=== PATIENT | male | born 1975 | race Caucasian/White ===

== ENCOUNTER 2021-09-10 06:27 | Day surgery (SDC) | payer OTHER ==
[~2021-09-10 06:27] MED LIST: Lactated Ringers 1,000 ML IV SCH; ceFAZolin 2 GM in Premix Bag 1 BAG IV SCH
[2021-09-10] MEDS ORDERED: fentaNYL 100 MCG/2 ML SDV IVPUSH PRN (07:02)
[2021-09-10] MEDS ORDERED: Morphine 2 MG/ML SYRINGE IVPUSH PRN (07:02)
[2021-09-10] MEDS ORDERED: Metoclopramide 10 MG/2 ML SDV IVPUSH PRN (07:02)
[2021-09-10] MEDS ORDERED: HYDROmorphone 1 MG/ML Syringe IVPUSH PRN (07:02)
[2021-09-10] MEDS ORDERED: Ondansetron 4 MG/2 ML SDV IVPUSH PRN ×2 (07:02→10:35)
[2021-09-10] MEDS ORDERED: Albuterol 0.083% 2.5 MG/3 ML Neb Soln NEB PRN (07:02)
[2021-09-10] MEDS ORDERED: Naloxone 0.4 MG/ML SDV IVPUSH PRN (07:02)
[2021-09-10] MEDS ORDERED: Midazolam 1 MG/ML 2 ML SDV ONE (07:06)
[2021-09-10] MEDS ORDERED: Propofol 200 MG/20 ML SDV ONE (07:06)
[2021-09-10] MEDS ORDERED: fentaNYL 250 MCG/5 ML SDV ONE (07:06)
[2021-09-10] MEDS ORDERED: Ketorolac 30 MG/ML SDV ONE (07:06)
[2021-09-10] MEDS ORDERED: Glycopyrrolate 0.2 MG/ML SDV ONE (07:06)
[2021-09-10] MEDS ORDERED: Lidocaine 2% 5 ML SDV ONE (07:06)
[2021-09-10] MEDS ORDERED: Bupivacaine 0.5% 10 ML SDV ONE ×2 (07:18→07:38)
[2021-09-10] MEDS ORDERED: ceFAZolin 1 GM Vial ONE ×2 (07:18→07:59)
--- NOTE | 2021-09-10 07:51 | PCM.PREANE ---
Preanesthetic Assessment - Procedure Proposed Procedure: Anthony Inguinal Hernia repair with mesh - Anesthesia/Transfusion/Family Hx Anesthesia History: No Prior Anesthesia Family History of Anesthesia Reaction: No Transfusion History: No Prior Transfusion(s) - Review of Systems General: No Symptoms Pulmonary: No Symptoms Cardiovascular: No Symptoms Gastrointestinal: No Symptoms (GERD well controlled) Neurological: No Symptoms Other: Reports: None - Physical Assessment NPO Status Date: 09/09/21 NPO Status Time: 22:30 Height: 6 ft Weight: 78.925 kg ASA Class: 2 Mental Status: Alert & Oriented x3 Airway Class: Mallampati = 2 Dentition: Reports: Normal Dentition Thyro-Mental Finger Breadths: 3 Mouth Opening Finger Breadths: 3 ROM/Head Extension: Full Lungs: Clear to Auscultation, Normal Respiratory Effort Cardiovascular: Regular Rate, Regular Rhythm - Allergies Allergies/Adverse Reactions: Allergies Allergy/AdvReac Type Severity Reaction Status Date / Time No Known Allergies Allergy Verified 09/04/21 11:23 - Acknowledgements Anesthesia Type Planned: General Anesthesia Pt an Appropriate Candidate for the Planned Anesthesia: Yes Alternatives and Risks of Anesthesia Discussed w Pt/Guardian: Yes Pt/Guardian Understands and Agrees with Anesthesia Plan: Yes PreAnesthesia Questionnaire - Past Health History Medical/Surgical History: Denies Medical/Surgical History HEENT History: Reports: Other (See Below) Other HEENT History: wears glasses Gastrointestinal History: Reports: GERD - Past Surgical History Head Surgeries/Procedures: Reports: None - SUBSTANCE USE Tobacco Use Status *Q: Light Tobacco User Tobacco Use Within Last Twelve Months: Cigarettes - HOME MEDS Home Medications: Home Meds Omeprazole 20 mg PO DAILY 09/04/21 [History] - CURRENT (IN HOUSE) MEDS Current Meds: Current Medications Cefazolin Sodium/Dextrose 2 gm (/ Premix) 50 mls @ 100 mls/hr IV ONETIME JERILYN Lactated Ringer's (Ringers, Lactated) 1,000 mls @ 125 mls/hr IV ASDIRECTED JERILYN
[2021-09-10] MEDS ORDERED: Sodium Chloride 0.9% 20 ML ONE (07:59)
[2021-09-10] MEDS ORDERED: Acetaminophen 1,000 MG in Premix Bag 1 BAG IV ONE (10:31)
--- NOTE | 2021-09-10 10:32 | PCM.POSTAN ---
POST ANESTHESIA ASSESSMENT - MENTAL STATUS Mental Status: Alert, Oriented - VITAL SIGNS Vital Signs: Last Vital Signs Temp 97.2 F 09/10/21 07:54 Pulse 54 L 09/10/21 07:54 Resp 16 09/10/21 07:54 BP 128/85 09/10/21 07:54 Pulse Ox 99 09/10/21 07:54 - RESPIRATORY Respiratory Status: Respiratory Rate WNL, Airway Patent, O2 Saturation Stable - CARDIOVASCULAR CV Status: Pulse Rate WNL, Blood Pressure Stable - GASTROINTESTINAL GI Status: No Symptoms - PAIN Pain Score: 6 - POST OP HYDRATION Hydration Status: Adequate & Stable
[2021-09-10] MEDS ORDERED: Acetaminophen/HYDROcodone 325-5 MG Tab PO PRN (10:35)
--- NOTE | 2021-09-10 10:39 | PCM48HPAN ---
Post Anesthesia Note - EVALUATION WITHIN 48HRS OF ANESTHETIC Vital Signs in Normal Range: Yes Patient Participated in Evaluation: Yes Respiratory Function Stable: Yes Airway Patent: Yes Cardiovascular Function Stable: Yes Hydration Status Stable: Yes Pain Control Satisfactory: Yes Nausea and Vomiting Control Satisfactory: Yes Mental Status Recovered: Yes Vital Signs: Last Vital Signs Temp 97.2 F 09/10/21 07:54 Pulse 54 L 09/10/21 07:54 Resp 16 09/10/21 07:54 BP 128/85 09/10/21 07:54 Pulse Ox 99 09/10/21 07:54 - COMMENTS/OBSERVATIONS Free Text/Narrative:: Pt doing well post-op. VSS. No apparent anesthetic complications. Dr. Prasanna Laurent
[2021-09-10] MEDS ORDERED: Morphine 4 MG/ML Syringe IVPUSH PRN (10:40)
--- NOTE | 2021-09-10 10:43 | PCM.OPNOTE ---
- General Post-Op/Procedure Note Date of Surgery/Procedure: 09/10/21 Operative Procedure(s): Repair left inguinal hernia with extra large Bard PerFix plug and patch. Repair right inguinal hernia with Bard patch. Pre Op Diagnosis: Bilateral reducible inguinal hernia Post-Op Diagnosis: Same Anesthesia Technique: General LMA (ASA II) Primary Surgeon: Momo Garnica Anesthesia Provider: Mitchel Shearer Fluid Replacement, Intraop: 600 EBL in mLs: 10 Condition: Good Free Text/Narrative:: DICTATION 000565 CPT CODE 60564
[2021-09-10] MEDS ORDERED: Lactated Ringers 1,000 ML IV SCH (10:45)
--- NOTE | 2021-09-10 16:25 | OR ---
SURGEON: Momo Garnica M.D. DATE OF PROCEDURE: 09/10/2021 OPERATIONS PERFORMED: 1. Repair of left inguinal hernia with extra-large Bard PerFix plug and patch. 2. Repair of right inguinal hernia with Bard patch. PRIMARY SURGEON: Momo Garnica M.D. PARTS PROFESSIONAL: Med Peds: [employer] student. ANESTHESIA: General LMA. ASA CLASSIFICATION: II. PREOPERATIVE DIAGNOSIS: Bilateral inguinal hernia, left greater than right. POSTOPERATIVE DIAGNOSIS: Bilateral inguinal hernia, left greater than right. ESTIMATED BLOOD LOSS: 10 mL. INTRAOPERATIVE FLUID REPLACEMENT: 600 mL of crystalloid. DESCRIPTION OF PROCEDURE: The patient was taken to the operating room and placed on the operating table in the supine position. Time-out was called for appropriate identification of the patient and procedure. Both surgical sites had been marked and numbered with the patient's assistance prior to entering the operating room. The left side was approached first, as this was the larger of the two hernias and the more symptomatic. Both skin incisions were marked out for symmetry. The skin in the left inguinal crease was infiltrated with 10 mL of 0.5% Marcaine solution. Skin incision was made and deepened through the subcutaneous tissue obtaining hemostasis with the use of electrocautery. Dissection was carried down to the external oblique fascia which was opened in the direction of its fibers. The cord was then mobilized. The floor was quite weak with a large direct component. An extra-large Bard PerFix plug and patch was brought to the operating table and soaked in 1% Ancef solution. The plug was placed into the medial defect and secured inferiorly to Hussein ligament and superiorly to the transversalis fascia with interrupted 0 Ethibond. The patch was then placed over this, bringing the wings of the patch around the cord. The patch was then secured with multiple interrupted 0 Ethibond sutures beginning medially and inferiorly to Hussein ligament, transitioning to the inguinal ligament, and superiorly to the transversalis fascia. The wings were brought around the cord and secured laterally with care taken not to impinge on the cord. All sutures were tied down. The patient was given a Valsalva maneuver to 30 cm and the repair was solid. It should be noted that once the spermatic cord had been dissected free, it was encircled with a Richmond drain and care was taken to preserve and protect the ilioinguinal nerve. Once the sutures were secured and the patient given a Valsalva maneuver, the repair was felt to be solid. The wound was then irrigated with sterile 1% Ancef solution. The cord was returned to its anatomic location. The external oblique fascia was closed with running 3- 0 Vicryl. The subcutaneous tissue and Junior fascia were closed with 3-0 Vicryl, and the skin edges were reapproximated with subcuticular 4-0 Monocryl. Our attention was now turned to the patient's right side. Again, the skin incision which had previously been marked was infiltrated with 10 mL of 0.5% Marcaine solution. Skin incision was made and deepened through the subcutaneous tissues obtaining hemostasis with the use of electrocautery. Again, dissection was carried down to the external oblique fascia which was opened in the direction of its fibers. The cord was mobilized with care taken to preserve and protect the ilioinguinal nerve. The cord was again encircled with a Richmond drain. There was a small lateral defect, however, directly underlying this was the external iliac artery. It was felt that this was not a safe place to place a plug for fear of erosion into the underlying structures. Therefore, a PerFix patch was brought to the operating table and again soaked in 1% Ancef solution. The patch was placed over the floor again with the wings brought around the cord laterally. Medially and inferiorly, the plug was sutured to Hussein ligament, transitioning to the inguinal ligament as the repair commenced from medial to lateral. Superiorly, the mesh was secured to the transversalis fascia. The wings were again brought around the cord and secured with a 0 Ethibond suture. All sutures were tied down and the patient given a Valsalva maneuver again to 30 cm of water. The repair was felt to be solid. The wound was inspected for hemostasis and no bleeding was noted. With the cord returned to its anatomic location, the incision was irrigated with 1% Ancef solution. The external oblique was again reapproximated with 3-0 Vicryl. Junior fascia was closed with running 3-0 Vicryl and the skin reapproximated with subcuticular 4-0 Monocryl. Both incisions were Steri-Stripped and dressed with sterile Tegaderm pads. Sponge, needle, and instrument counts were all correct. Once the drapes were taken down, the scrotum was examined and both testicles were again in a proper anatomic position. Following emergence from anesthesia and extubation, the patient was taken to recovery room in stable condition. NIDIA GARCIA /[id number]
== END 2021-09-10 12:54 | disposition home or self-care (01) ==
LOC: MW.SDS 06:27
PROVIDERS: ATTEND Surgery
DX: K40.20 Bilateral inguinal hernia, without obstruction or gangrene, not specified as recurrent (principal); D17.6 Benign lipomatous neoplasm of spermatic cord; F17.210 Nicotine dependence, cigarettes, uncomplicated; K21.9 Gastro-esophageal reflux disease without esophagitis; Z01.812 Encounter for preprocedural laboratory examination; Z20.822 Contact with and (suspected) exposure to COVID-19
CPT/HCPCS: 49505; 87635; C1781; J0131; J0690; J1885; J2250; J2704; J3010; J3490; J7120; 00830; U0002